=== PATIENT | male | born 1975 | race Caucasian/White ===

== ENCOUNTER 2024-12-27 18:29 | Inpatient (IN) | payer OTHER ==
[2024-12-27 18:51] VITALS: BMI 25.5
[2024-12-27] MEDS ORDERED: guaiFENesin 600 MG TABLET.ER (FP) PO PRN (19:01)
[2024-12-27] MEDS ORDERED: BENZOCAINE/MENTHOL (CHLORASEPTIC ) LOZENGE MM PRN (19:01)
[2024-12-27] MEDS ORDERED: NALOXONE (NARCAN) HCL 4 MG/0.1 ML SPRAY NS PRN (19:01)
[2024-12-27] MEDS ORDERED: hydrOXYzine PAMOATE 25 MG CAPSULE (FP) PO PRN (19:01)
[2024-12-27] MEDS ORDERED: LOPERAMIDE HCL 2 MG CAPSULE PO PRN (19:01)
[2024-12-27] MEDS ORDERED: IBUPROFEN 600 MG TABLET (FP) PO PRN (19:01)
[2024-12-27] MEDS ORDERED: ACETAMINOPHEN 325 MG TABLET (FP) PO PRN (19:01)
[2024-12-27] MEDS ORDERED: IBUPROFEN 400 MG TABLET (FP) PO PRN (19:01)
[2024-12-27] MEDS ORDERED: MAGNESIUM HYDROX 2400MG/30ML ORAL SUSPENSION 30 ML CUP PO PRN (19:01)
[2024-12-27] MEDS ORDERED: MAG HYDROX/AL HYDROX/SIMETH 30 ML UNIT-DOSE CUP PO PRN (19:01)
[2024-12-27] MEDS ORDERED: BENZONATATE 200 MG CAPSULE PO PRN (19:01)
[2024-12-27] MEDS ORDERED: POLYETHYLENE GLYCOL (HEALTHYLAX) 3350 17 GM PACKET PO PRN (19:01)
[2024-12-27] MEDS ORDERED: NICOTINE POLACRILEX 2 MG LOZENGE BC PRN (19:01)
[2024-12-27] MEDS ORDERED: BUPRENORPHINE/NALOXONE 4 MG/1 MG FILM PACKET ONE (19:44)
[2024-12-27] MEDS: BUPRENORPHINE/NALOXONE 4 MG/1 MG FILM PACKET SL ONE (19:45)
[2024-12-27] MEDS: NICOTINE POLACRILEX 2 MG GUM BUC PRN (20:12)
[2024-12-27] MEDS: THIAMINE 100 MG TABLET PO SCH (22:46)
[2024-12-27] MEDS: MELATONIN 5 MG TABLETS PO SCH (22:46)
[2024-12-27] MEDS: TUBERCULIN PPD 5 TU/0.1ML SYRINGE (IN PATIENT USE ONLY) ID ONE (22:49)
[2024-12-27 23:47] LABS: EPI CELLS 13 /uL (0-25.1); HYALINE CASTS 2 /uL (0-3.1); URINE APPEARANCE CLOUDY; URINE BACTERIA 32 /uL (0-1359); URINE BILIRUBIN NEGATIVE (NEGATIVE); URINE COLOR YELLOW; URINE GLUCOSE (UA) NEGATIVE (NEGATIVE); URINE KETONE TRACE (NEGATIVE); URINE LEUK ESTERASE NEGATIVE (NEGATIVE); URINE NITRITE NEGATIVE (NEGATIVE); URINE PROTEIN TRACE (NEGATIVE); URINE RBC 39 /uL (0-23.9); URINE UROBILINOGEN 0.2 mg/dL (0.2-1.0); URINE WBC 34 /uL (0-25.8)
[2024-12-27 23:53] LABS: URINE CRYSTALS NONE SEEN /hpf
[2024-12-28] MEDS: BUPRENORPHINE/NALOXONE 8 MG/2 MG FILM PACKET SL SCH (09:10)
[2024-12-28] MEDS: PRENATAL VITAMINS W/ FOLIC ACID TABLET (FP) PO SCH (09:11)
[2024-12-28 10:04] LABS: MCHC 31.9 g/dl (32.3-36.5); MEAN CELL VOLUME 95.7 fl (79.0-92.2); MEAN PLT VOLUME 9.7 fl (9.4-12.4); RDW 13.2 % (12.1-15.9)
[2024-12-28 10:36] LABS: GLUCOSE,RANDOM 172 mg/dL (74-106); TOT PROT 5.7 g/dl (6.4-8.2)
[2024-12-28 10:37] LABS: CO2 24 mmol/L (21-32)
[2024-12-28 10:38] LABS: ALK PHOS 112 U/L (40-150)
[2024-12-28 10:41] LABS: SGOT/AST 26 U/L (5-34); SGPT/ALT 46 U/L (0-55)
[2024-12-28 10:42] LABS: CREATININE 0.66 mg/dL (0.55-1.3)
[2024-12-28 11:08] LABS: SYPHILIS W/ RPR CONF NON-REACTIVE (NONREACTIVE)
[2024-12-28 11:34] LABS: HCV DIAGNOSTIC IN-HOUSE W/RFLX EQUIVOCAL (NONREACTIVE)
[2024-12-29 12:37] LABS: HIV INTERPRETATION NEGATIVE (NEGATIVE)
[2024-12-29] MEDS ORDERED: BUPRENORPHINE/NALOXONE 8 MG/2 MG FILM PACKET SL SCH (14:00)
[2024-12-29] MEDS: POTASSIUM CHLORIDE TABS 20 MEQ TABLET.ER (FP) PO ONE (14:26)
[2024-12-30] MEDS ORDERED: BUPRENORPHINE/NALOXONE 8 MG/2 MG FILM PACKET SL SCH (06:00)
[2024-12-30 06:43] VITALS: BP 121/78; PULSE 63; RESP 20; TEMP 98.1
== END 2024-12-30 11:28 | disposition left against medical advice (07) | DRG 770 ==
LOC: YASAS 18:29 → Y3NR 19:47 → Y3E 12-28 10:13
PROVIDERS: ADMIT Neuromusculoskeletal Medicine & OMM; ATTEND Psychiatry & Neurology Pain Medicine
PROC: HZ42ZZZ Group Counseling for Substance Abuse Treatment, Cognitive-Behavioral (ICD-10-PCS; principal; 2024-12-27)
DX: F14.20 Cocaine dependence, uncomplicated (principal); F11.20 Opioid dependence, uncomplicated; F12.20 Cannabis dependence, uncomplicated; F17.210 Nicotine dependence, cigarettes, uncomplicated; F32.A Depression, unspecified; E87.5 Hyperkalemia; Z86.19 Personal history of other infectious and parasitic diseases
CPT/HCPCS: 36415; 71046-TC-FY; 80053; 80307; 81003; 83036; 84132; 85027; 86780; 86803; 87389; 87522; 93005; 93010